=== PATIENT | male | born 1990 | race Caucasian/White ===

== ENCOUNTER 2021-05-15 08:22 | Emergency (ER) | payer OTHER, SELFPAY ==
[2021-05-15 08:28] VITALS: BP 150/85; PULSE 64; RESP 16; TEMP 37.3; O2SAT 100
--- NOTE | 2021-05-15 08:30 | ED_ITS ---
HPI - Eye Problem General Chief complaint: Eye Problems Stated complaint: Eye Problem Source: patient Mode of arrival: ambulatory Limitations: no limitations History of Present Illness HPI Narrative: Mr. Pierre is a 30-year-old male patient presenting to the clinic today with complaints of eye irritation to the right upper eyelid. He reports this has been going on for approx 3-4 days. Related Data Home Medications Medication Instructions Recorded Confirmed No Home Medications 05/15/21 05/15/21 Allergies Allergy/AdvReac Type Severity Reaction Status Date / Time No Known Allergies Allergy Unverified 05/15/21 08:37 Review of Systems Review of Systems: Pertinent positives per HPI. Patient denies any fever, chills, rash, headache, visual changes, dizziness, cough, runny nose, sore throat, shortness of breath, chest pain, palpitations, nausea, vomiting, diarrhea, constipation, abdominal pain, or any urinary issues. PMFSH Comments At the time of my signature, I reviewed and agree with the nursing past medical, surgical, social, and family history. There is no relevant family history pertinent to the patient complaint. Exam Narrative: General: Well-developed, well nourished, in no apparent distress Head: Normocephalic, atraumatic Eyes: Pupils equally round and reactive to light bilaterally, EOM intact, sclera and conjunctive clear, no discharge, right upper lid swelling with tender pustule to the right upper lateral eye lid. Cardio: Regular rate and rhythm, s1 and s2 normal, no murmur appreciated. Resp: Clear to auscultation bilaterally anteriorly and posteriorly, no rhonchi, rales, wheezing or rubs Course Course Emergency Course: Portions of this record may have been created with voice recognition software. Level of Care: Express Care Visit Vital Signs Vital signs: Vital signs reviewed MDM - Eye Problem Differential Diagnosis Differential diagnosis: Likely corneal abrasion, conjunctivitis, periorbital cellulitis and corneal ulcer Discharge Plan Discharge Clinical Impression: Internal hordeolum of right eye Qualifiers: Eyelid: upper Qualified Code(s): H00.021 - Hordeolum internum right upper eyelid Patient Disposition: Home, Self-Care Condition: Stable Instructions: Antibiotic Form Additional Instructions: Warm moist heat to affected eye Tylenol Motrin as needed for pain or fever Complete polymyxin eyedrops as directed Follow-up with your PCP in 3 to 5 days if symptoms persist. Good handwashing techniques when dealing with the eyes. Prescriptions: New polymyxin B sulf-trimethoprim [Polytrim] 10,000 unit- 1 mg/mL drops 1 drp EACH EYE QID 7 Days Qty: 10 RF: 0 No Action No Home Medications RF: 0 Follow-up/Referrals: PHYSICIAN,EQUIPMENT OPERATING ENGINEER [Primary Care Provider] - Time of Disposition: 08:38 Quality NIHSS Nursing Documentation ED NIHSS nursing documentation: reviewed/agree
== END 2021-05-15 08:43 | disposition home or self-care (01) ==
PROVIDERS: Emergency Provider Nurse Practitioner Family
DX: H00.021 Hordeolum internum right upper eyelid (principal)
CPT/HCPCS: 99203; G0463

== ENCOUNTER 2022-10-22 16:36 | Emergency (ER) | payer BC, SELFPAY ==
--- NOTE | ~2022-10-22 | XR_ITS ---
EXAMINATION: XR chest 2V Exam Date/Time: 10/22/2022 17:10 CDT HISTORY: DIZZINESS Comparison: 03/19/2010. RESULT: Lines, tubes, and devices: None. Lungs and pleura: Clear. Cardiomediastinal silhouette: Stable. Other: No acute osseous or upper abdominal finding. IMPRESSION: No acute cardiopulmonary process. Reviewed, dictated and finalized at location K.
[2022-10-22 16:46] VITALS: BP 151/78; PULSE 62; RESP 18; TEMP 36.6; O2SAT 100
--- NOTE | 2022-10-22 16:47 | ECG_ITS ---
Measurements Intervals Smith Rate: 57 P: 83 WA: 119 QRS: 45 QRSD: 121 T: 42 QT: 386 QTc: 378 Interpretive Statements SINUS RHYTHM WITH SHORT WA INTERVAL BASELINE ARTIFACT RSR' IN V1/V2 BORDERLINE ECG NO PREVIOUS ECG AVAILABLE FOR COMPARISON Electronically Signed On 10-23-2022 15:04:29 CDT by Alan Marin M.D.
[2022-10-22 17:01] LABS: Glucose Point of Care 87 mg/dl (65-105)
--- NOTE | 2022-10-22 17:15 | ED.GENADULT ---
HPI - General Adult General Chief complaint: Dizziness Stated complaint: Dizziness Source: patient Mode of arrival: ambulatory Limitations: no limitations History of Present Illness HPI narrative: Patient presents for evaluation of lightheadedness. Symptom onset 1430 this afternoon. He cannot identify any precipitating event. He was watching television at the time of symptom onset. Symptoms have persisted since that time. Denies any fever, chills, chest pain, cough, nausea, vomiting, and diarrhea. He does not feel like the room is spinning. He has been under increased stress as he was charged with concealing a murder that his uncle committed. He is currently on house arrest, living with his parents. Has a hx of heroin/meth/fentanyl abuse. He has been clean from heroin and fentanyl for approximately 7 years and meth since the beginning of this year. Related Data Allergies Allergy/AdvReac Type Severity Reaction Status Date / Time No Known Allergies Allergy Unverified 05/15/21 08:37 Review of Systems Review of Systems: CONSTITUTIONAL: Denies fever, chills, or sweats. EYES: Denies visual changes, redness, or discharge. ENT: Denies rhinorrhea, congestion, sore throat, or otalgia. CARDIOVASCULAR: Denies chest pain, palpitations, or edema. RESPIRATORY: Denies cough or dyspnea. GASTROINTESTINAL: Denies abdominal pain, nausea, vomiting, or diarrhea. GENITOURINARY: Denies dysuria or hematuria. SKIN: Denies rash or itching. MUSCULOSKELETAL: Denies back pain, joint pain, or myalgia. NEUROLOGIC:Reports feeling lightheaded. Denies headache, numbness, or weakness. PSYCHIATRIC: Denies anxiety or depression. [facility] Past Medical History Medical History Substance abuse Surgical History Surgical History History of surgery on wrist Family History Family History Mother Family history non-contributory Social History Social History Substance use: former Substance use type: heroin, amphetamines and painkillers Living arrangements: with family Gender identity (if verbalized by the patient): Male Spiritual care concerns: No Exam Narrative: GENERAL: Well-appearing, well-nourished, and in no acute distress. HEAD: Normocephalic, atraumatic. EYES: PERRLA and EOMI. ENT: Nares clear, no rhinorrhea or epistaxis. Mucous membranes moist. Oropharynx without tonsillar hypertrophy exudate or other lesions. Bilateral TMs pearly hamm nonbulging NECK: Supple. No adenopathy or masses. No carotid bruits or JVD CHEST: Clear to auscultation. No respiratory distress. No wheezes rales or rhonchi HEART: Regular rate and rhythm. No murmur heard. Normal peripheral pulses. ABDOMEN: Soft, nontender, nondistended, normal active bowel sounds. EXTREMITIES: Normal range of motion. No edema. SKIN: Warm, dry, no rash. NEURO: No focal deficits. Alert and oriented x3. Normal [id number] exam. Able to perform rapid alternating movements without difficulty. Comprehensive neurological exam intact PSYCH: Normal mood and affect. Course Course Emergency Course: This is a 32-year-old male who presented for evaluation of lightheadedness. Neurologically intact. Chest x-ray normal. EKG with no acute ischemic changes. Urine normal. Blood sugar normal. Exam is consistent with anxiety. I will plan to dc him with vistaril. He should follow up with primary provider. Go to the ER for chest pain or worsening symptoms. Pt in agreement with plan of care Level of Care: Express Care Visit Vital Signs Vital signs: Vital Signs Temperature 36.6 C 10/22/22 16:46 Pulse Rate 62 10/22/22 16:46 Respiratory Rate 18 10/22/22 16:46 Blood Pressure 151/78 H 10/22/22 16:46 Pulse Oximetry 100 10/22/22
== END 2022-10-22 17:54 | disposition home or self-care (01) ==
PROVIDERS: Emergency Provider Nurse Practitioner
DX: R42 Dizziness and giddiness (principal); F41.9 Anxiety disorder, unspecified
CPT/HCPCS: 71046; 81003; 82948; 93005; 99213; G0463